=== PATIENT | male | born 1985 | race Two or more races ===

== ENCOUNTER 2020-07-17 16:26 | Emergency (ER) | payer SELFPAY ==
--- NOTE | 2020-07-17 17:32 | EDM.PDOC ---
ED HPI GENERAL MEDICAL PROBLEM - General Chief Complaint: Respiratory Problem Stated Complaint: HEADACHE,SORETHROAT AND COUGH Time Seen by Provider: 07/17/20 16:40 Source of Information: Reports: Patient History Limitations: Reports: Language Barrier (pt is primarily yoruba speaking, but translation services were in use) - History of Present Illness INITIAL COMMENTS - FREE TEXT/NARRATIVE: Patient is a 34-year-old male who presents to the ED for evaluation of his COVID-like symptoms. Patient notes for the last 8 days he has been having body aches, headaches, fever, and a sore throat. He notes he has been around a friend who tested positive for COVID-19, and he thinks that he could have been exposed but he is not been tested. Patient notes his fever has been as high as 102 F at home. Temperature in the ER is 100 F. Patient is not complaining of any nausea/vomiting/diarrhea. Patient has been utilizing Tylenol for symptomatic management and this seems to be helping. Of note the patient is primarily Kiswahili-speaking, and we did use translation services for this history. Headache Pain Score (Numeric/FACES): 8 - Related Data Allergies Allergy/AdvReac Type Severity Reaction Status Date / Time No Known Allergies Allergy Verified 07/17/20 16:44 Home Meds: Home Meds . [No Known Home Meds] 07/17/20 [History] Social & Family History - Tobacco Use Smoking Status *Q: Never Smoker Second Hand Smoke Exposure: No - Caffeine Use Caffeine Use: Reports: Coffee, Soda, Tea - Recreational Drug Use Recreational Drug Use: No ED ROS GENERAL - Review of Systems Review Of Systems: Comprehensive ROS is negative, except as noted in HPI. ED EXAM, GENERAL - Physical Exam Exam: See Below Exam Limited By: Language Barrier (pt is primarily yoruba speaking, but translation services were in use) General Appearance: Alert, WD/WN, No Apparent Distress Throat/Mouth: Normal Inspection, Normal Lips, Normal Teeth, Normal Gums, Normal Oropharynx, Normal Voice, No Airway Compromise Head: Atraumatic Neck: Normal Inspection Respiratory/Chest: No Respiratory Distress, Lungs Clear, Normal Breath Sounds, No Accessory Muscle Use, Chest Non-Tender Cardiovascular: Normal Peripheral Pulses, Regular Rate, Rhythm, No Murmur Peripheral Pulses: 2+: Radial (L), Radial (R) Extremities: Normal Inspection, Normal Capillary Refill Neurological: Alert, Oriented, Normal Cognition, No Motor/Sensory Deficits Psychiatric: Normal Affect, Normal Mood Skin Exam: Warm, Dry, Intact, Normal Color, No Rash Course - Vital Signs Last Recorded V/S: Last Vital Signs Temp 100.0 F 07/17/20 16:39 Pulse 108 H 07/17/20 16:39 Resp 20 07/17/20 16:39 BP 115/77 07/17/20 16:39 Pulse Ox 95 07/17/20 16:39 - Orders/Labs/Meds Orders: Active Orders 24 hr Category Date Time Status CORONAVIRUS COVID-19 PCR PH[facility] Stat Lab 07/17/20 16:45 Ordered - Re-Assessments/Exams Free Text/Narrative Re-Assessment/Exam: 07/17/20 17:29 Patient presents to the ED for the evaluation of his [id number] illness. We will get a baseline chest x-ray, along with a state send out test for COVID-19. Patient will be advised to quarantine at home, and reduce his exposure to others until he has results of his coronavirus test. He will be given general recommendations, for symptomatic management and discharged home, his O2 sats are good at 95% on room air. He is in no obvious distress at this time. 07/17/20 18:36 The patient's chest x-ray shows right lower lobe pneumonia as well as possible small peripheral areas of parenchymal density within the left chest. Multifocal nature makes the possibility of COVID-19 pneumonia possible. Please correlate. Again symptoms and exposure stated in his HPI, I do highly suspect COVID-19 at this time. Again O2 sats are okay at 95% on room air. Patient be discharged home at this time. Departure - Departure Time of Disposition: 17:30 Disposition: Home, Self-Care 01 Condition: Good Clinical Impression: Exposure to COVID-19 virus - Discharge Information *PRESCRIPTION DRUG MONITORING PROGRAM REVIEWED*: No *COPY OF PRESCRIPTION DRUG MONITORING REPORT IN PATIENT SOFIA: No Referrals: PCP,None [Primary Care Provider] - Forms: ED Department Discharge, ED Return to Work/School Form Additional Instructions: Hoy lo vieron en la salima de emergencias por sntomas respiratorios en curso o que empeoraron. Yeboah radiografa de trax demostr preeti pequea brian de pnuemonia, que es comn en personas con COVID-19 y posible COVID-19. En marina momento no necesita hospitalizacin. Jania niveles de oxgeno olga excelentes al 95% con aire ambiente. En marina momento le hicimos preeti prueba de COVID-19. Le pedimos que se ponga en cuarentena y que limite yeboah exposicin a otros hasta que reciba jania resultados del estado. Se le wang dado preeti nota de trabajo para reflejar esto. Los hisopos se envan desde esta instalacin a diario, a las 2:30 p.m., debe esperar hasta 3-5 macias hbiles para obtener resultados positivos o negativos. Sin embargo, es posible que reciba resultados antes. Estamos haciendo todo lo posible para llamar garcia pronto gabi obtengamos los resultados del departamento de ND. de caleb. Intente aumentar la ingesta de lquidos por va oral y coma varias comidas pequeas a lo ivana del da para mantenerse saludable. Puede jessika 500 mg de Tylenol cada 6 horas para aliviar el dolor o la fiebre. No exceda los 4000 mg de Tylenol en un lapso de tiempo de 24 horas. Sin embargo, tener fiebre es la respuesta natural de yeboah cuerpo a la enfermedad y permite que el cuerpo desarrolle anticuerpos contra la enfermedad, recomendamos tratar de limitar el uso de Tylenol tanto gabi sea posible para permitir la respuesta inmune natural de yeboah cuerpo. You were seen in the ER today for ongoing and/or worsening respiratory symptoms. Your chest x-ray demonstrated a small area of pnuemonia, which is common for people with COVID-19 and possible COVID-19. At this time you do not need hospitalization. Your oxygen levels were great at 95% on room air. At this time we did test you for COVID-19. We ask that you self-quarantine and limit your exposure to others until you receive your results from the state. You have been given a work note to reflect this. Swabs are sent from this facility on a daily basis, at 2:30 PM, you should expect up to 3-5 business days for positive or negative results. However you may receive results earlier than this. We are doing our best to call as soon as we get results from the [place] dept[facility] of [facility]. Please try to increase your oral fluid intake, and eat multiple small meals throughout the day, to keep yourself healthy. You may take 500 mg Tylenol every hours 6 hours for pain/fever relief. Do not exceed 4000 mg Tylenol in a 24-hour time span. However, running a fever is your body's natural response to illness, and it allows the body to develop antibodies to disease, we are recommending trying to limit the use of Tylenol as much as possible to allow your body's natural immune response. Sepsis Event Note (ED) - Evaluation Sepsis Screening Result: No Definite Risk - Focused Exam Vital Signs: Vital Signs Temp Pulse Resp BP Pulse Ox 07/17/20 16:39 100.0 F 108 H 20 115/77 95 - My Orders Last 24 Hours: My Active Orders 07/17/20 16:45 CORONAVIRUS COVID-19 PCR PHL Stat - Assessment/Plan Last 24 Hours: My Active Orders 07/17/20 16:45 CORONAVIRUS COVID-19 PCR PHL Stat
--- NOTE | 2020-07-17 18:27 | CR ---
Chest: Portable view of the chest was obtained. Comparison: No prior chest imaging. Heart size at the upper limits of normal. Upper mediastinum is within normal limits for portable technique. Increased density within the right lung base is seen. Lungs questionable peripheral densities within the left base possibly due to additional parenchymal opacities. Impression: 1. Right lower lobe pneumonia as well as possible small peripheral areas of parenchymal density within left chest. Multifocal nature makes the possibility of Covid 19 pneumonia possible. Please correlate. Diagnostic code #3 Study was dictated in MDT
== END 2020-07-17 19:07 | disposition home or self-care (01) ==
LOC: EDBD → JD.ED 16:26
DX: U07.1 COVID-19 (principal)
CPT/HCPCS: 71045; 71045-26; 99282; 99283-25; U0002

== ENCOUNTER 2020-07-22 10:13 | Emergency (ER) | payer SELFPAY ==
--- NOTE | 2020-07-22 11:05 | EDM.PDOC ---
ED HPI GENERAL MEDICAL PROBLEM - General Chief Complaint: Respiratory Problem Stated Complaint: COVID +/ SOB/FEVER Time Seen by Provider: 07/22/20 10:58 - History of Present Illness INITIAL COMMENTS - FREE TEXT/NARRATIVE: 35-year-old male presents the emergency room with increasing shortness of breath worsening cough. Patient was diagnosed with COVID approximately 5 days ago. His shortness of breath is worsening and his cough is worsening. Patient states his brother is doing better after he received IV fluids here. Patient feels hot at times. He denies nausea vomiting or diarrhea no abdominal pain. 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 Chest Pain Score (Numeric/FACES): 6 - Related Data Allergies Allergy/AdvReac Type Severity Reaction Status Date / Time No Known Allergies Allergy Verified 07/22/20 10:28 Home Meds: Home Meds dexAMETHasone [Dexamethasone] 6 mg PO QAM #15 tablet 07/22/20 [Rx] Past Medical History - Past Health History Medical/Surgical History: Denies Medical/Surgical History - Infectious Disease History Infectious Disease History: Reports: Novel Coronavirus Social & Family History - Tobacco Use Smoking Status *Q: Never Smoker Second Hand Smoke Exposure: No - Caffeine Use Caffeine Use: Reports: Coffee - Recreational Drug Use Recreational Drug Use: No ED ROS GENERAL - Review of Systems Review Of Systems: See Below Constitutional: Reports: Fever. Denies: No Symptoms, Chills HEENT: Reports: No Symptoms Respiratory: Reports: Pleuritic Chest Pain, Cough. Denies: Shortness of Breath, Sputum Cardiovascular: Reports: No Symptoms GI/Abdominal: Reports: No Symptoms : Reports: No Symptoms Musculoskeletal: Reports: Other (He is achy all over) Skin: Reports: No Symptoms Neurological: Reports: No Symptoms ED EXAM, GENERAL - Physical Exam Exam: See Below Exam Limited By: No Limitations General Appearance: Alert, No Apparent Distress Eye Exam: Bilateral Eye: Normal Inspection Ears: Normal External Exam, Normal Canal, Hearing Grossly Normal, Normal TMs Nose: Normal Inspection, Normal Mucosa, No Blood Throat/Mouth: Normal Inspection, Normal Lips, Normal Teeth, Normal Gums, Normal Oropharynx, Normal Voice, No Airway Compromise Head: Atraumatic, Normocephalic Neck: Normal Inspection, Supple, Non-Tender. No: Lymphadenopathy (L), Lymphaden opathy (R) Respiratory/Chest: No Respiratory Distress, Lungs Clear, Normal Breath Sounds, Other (When he makes himself breathe for the exam he coughs frequently) Cardiovascular: Regular Rate, Rhythm, No Edema, No Murmur GI/Abdominal: Normal Bowel Sounds, Soft, Non-Tender Back Exam: Normal Inspection. No: CVA Tenderness (L), CVA Tenderness (R) EKG INTERPRETATION EKG Date: 07/22/20 Rhythm: NSR [place]os[place]: Normal P-Wave: Present QRS: Normal ST-T: Normal QT: Normal Comparison: NA - No Prior EKG EKG Interpretation Comments: Normal Course - Vital Signs Last Recorded V/S: Last Vital Signs Temp 36.7 C 07/22/20 10:20 Pulse 95 07/22/20 10:20 Resp 20 07/22/20 10:20 BP 113/75 07/22/20 10:20 Pulse Ox 91 L 07/22/20 10:20 - Orders/Labs/Meds Labs: Laboratory Tests 07/22/20 07/22/20 07/22/20 Range/Units 10:50 10:50 10:50 WBC 5.52 (4.23-9.07) K/mm3 RBC 4.30 L (4.63-6.08) M/mm3 Hgb 12.3 L (13.7-17.5) gm/dl Hct 36.6 L (40.1-51.0) % MCV 85.1 (79.0-92.2) fl MCH 28.6 (25.7-32.2) pg MCHC 33.6 (32.2-35.5) g/dl RDW Std Deviation 39.3 (35.1-43.9) fL Plt Count 287 (163-337) K/mm3 MPV 10.5 (9.4-12.3) fl Neutrophils % (Manual) 88 H (40-60) % Band Neutrophils % 0 (0-10) % Lymphocytes % (Manual) 8 L (20-40) % Atypical Lymphs % 0 % Monocytes % (Manual) 2 (2-10) % Eosinophils % (Manual) 2 (0.8-7.0) % Basophils % (Manual) 0 L (0.2-1.2) Platelet Estimate Adequate RBC Morph Comment Not Reportable D-Dimer, Quantitative 0.91 H (0.19-0.50) mg/L Sodium 135 L (136-145) mEq/L Potassium 3.6 (3.5-5.1) mEq/L Chloride 100 (98-107) mEq/L Carbon Dioxide 22 (21-32) mEq/L Anion Gap 16.6 H (5-15) BUN 11 (7-18) mg/dL Creatinine 0.9 (0.7-1.3) mg/dL Est Cr Clr Drug Dosing 102.40 mL/min Estimated GFR (MDRD) > 60 (>60) mL/min BUN/Creatinine Ratio 12.2 L (14-18) Glucose 120 H (74-106) mg/dL Calcium 7.9 L (8.5-10.1) mg/dL Ferritin (26-388) ng/ml Total Bilirubin 0.6 (0.2-1.0) mg/dL AST 102 H (15-37) U/L ALT 104 H (16-63) U/L Alkaline Phosphatase 81 (46-116) U/L Lactate Dehydrogenase 602 H (85-227) U/L C-Reactive Protein 23.5 H* (<1.0) mg/dL Total Protein 7.3 (6.4-8.2) g/dl Albumin 2.7 L (3.4-5.0) g/dl Globulin 4.6 gm/dL Albumin/Globulin Ratio 0.6 L (1-2) 07/22/20 Range/Units 10:50 WBC (4.23-9.07) K/mm3 RBC (4.63-6.08) M/mm3 Hgb (13.7-17.5) gm/dl Hct (40.1-51.0) % MCV (79.0-92.2) fl MCH (25.7-32.2) pg MCHC (32.2-35.5) g/dl RDW Std Deviation (35.1-43.9) fL Plt Count (163-337) K/mm3 MPV (9.4-12.3) fl Neutrophils % (Manual) (40-60) % Band Neutrophils % (0-10) % Lymphocytes % (Manual) (20-40) % Atypical Lymphs % % Monocytes % (Manual) (2-10) % Eosinophils % (Manual) (0.8-7.0) % Basophils % (Manual) (0.2-1.2) Platelet Estimate RBC Morph Comment D-Dimer, Quantitative (0.19-0.50) mg/L Sodium (136-145) mEq/L Potassium (3.5-5.1) mEq/L Chloride (98-107) mEq/L Carbon Dioxide (21-32) mEq/L Anion Gap (5-15) BUN (7-18) mg/dL Creatinine (0.7-1.3) mg/dL Est Cr Clr Drug Dosing mL/min Estimated GFR (MDRD) (>60) mL/min BUN/Creatinine Ratio (14-18) Glucose (74-106) mg/dL Calcium (8.5-10.1) mg/dL Ferritin 698 H (26-388) ng/ml Total Bilirubin (0.2-1.0) mg/dL AST (15-37) U/L ALT (16-63) U/L Alkaline Phosphatase (46-116) U/L Lactate Dehydrogenase (85-227) U/L C-Reactive Protein (<1.0) mg/dL Total Protein (6.4-8.2) g/dl Albumin (3.4-5.0) g/dl Globulin gm/dL Albumin/Globulin Ratio (1-2) Meds: Medications Discontinued Medications Generic Name Dose Route Start Last Admin Trade Name Freq PRN Reason Stop Dose Admin Dexamethasone 6 mg 07/22/20 14:56 Dexamethasone PO 07/22/20 14:57 ONETIME ONE Lactated Ringer's 500 mls @ 999 mls/hr 07/22/20 12:01 07/22/20 12:14 Ringers, Lactated IV 07/22/20 12:31 999 mls/hr .BOLUS ONE Administration - Re-Assessments/Exams Free Text/Narrative Re-Assessment/Exam: 07/22/20 12:05 Labs and a chest x-ray ordered his O2 saturation was 91% upon arrival he has been in the mid 90s since that time, currently 96%. 07/22/20 14:56 And the stacker straightener service we discussed all his results including his elevated d-dimer. We discussed the pros and cons of a CT angiogram of the chest and the patient would like to hold off on this at this point. The patient feels better after receiving 500 cc of LR. The patient will be started on dexamethasone 6 mg daily for 6 days. His first dose will be given here in the emergency department and the remaining 5 days will be given through a prescription. Departure - Departure Time of Disposition: 15:00 Disposition: Home, Self-Care 01 Clinical Impression: Pneumonia due to COVID-19 virus - Discharge Information Prescriptions: dexAMETHasone [Dexamethasone] 6 mg PO QAM #15 tablet Referrals: PCP,None [Primary Care Provider] - Forms: ED Department Discharge Additional Instructions: Return to the emergency room with any questions problems or worsening symptoms. You have been started on dexamethasone 2 mg tablets take 3 of them every morning until all gone. You will start this tomorrow, Thursday morning. Follow-up in the hospital clinic as needed. [phone] Sepsis Event Note (ED) - Evaluation Sepsis Screening Result: No Definite Risk - Focused Exam Vital Signs: Vital Signs Temp Pulse Resp BP Pulse Ox 07/22/20 10:20 36.7 C 95 20 113/75 91 L
[2020-07-22] MEDS ORDERED: Lactated Ringers 500 ML IV ONE (12:01)
--- NOTE | 2020-07-22 12:55 | CR ---
Chest: Portable view of the chest was obtained. Comparison: Prior chest x-ray of 07/17/20. Findings: Patchy areas of increased density are seen within the right upper and right lower lung as well as left upper and left lower lung mostly within the lung peripheries. Findings have worsened from previous exam. Given the multifocal nature Covid pneumonia is the most likely etiology. Heart size and mediastinum are normal. Bony structures are grossly intact. Impression: 1. Patchy areas of increased density on both sides of the chest. As mentioned above, due to multifocal nature of these findings, Covid pneumonia is the most likely etiology. Diagnostic code #5 This report was dictated in MDT
[2020-07-22] MEDS ORDERED: Dexamethasone 4 MG Tab PO ONE (14:56)
== END 2020-07-22 15:43 | disposition home or self-care (01) ==
LOC: JD.ED 10:13 → EDBD 10:13 → JD.ED 15:43
DX: U07.1 COVID-19 (principal); J12.89 Other viral pneumonia
CPT/HCPCS: 36415; 71045; 80053; 82728; 83615; 85007; 85027; 85379; 86140; 96360; 99285; J7120; J8540; 93010; 99283